=== PATIENT | male | born 1960 | race Caucasian/White ===

== ENCOUNTER 2023-07-02 12:16 | Emergency (ER) | payer SELFPAY ==
[~2023-07-02] VITALS: Ht 167.6 cm; Wt 100.0 kg
[2023-07-02 12:24] VITALS: O2SAT 96
[2023-07-02] MEDS ORDERED: atorvastatin (12:24)
[2023-07-02] MEDS ORDERED: METFROMIN (12:24)
[2023-07-02] MEDS ORDERED: metoprolol (12:24)
[2023-07-02] MEDS: KETOROLAC 60MG/2ML VIAL IM STA (12:33)
[2023-07-02 13:08] LABS: BASOPHILS % 0.4 % (0.0-2.0); EOSINOPHILS % 0.3 % (0.0-5.0); HEMATOCRIT. 39.7 % (42.0-52.0); HEMOGLOBIN. 13.2 g/dL (14.0-18.0); LYMPHOCYTES % 20.8 % (20.0-50.0); MEAN CORPUSCULAR HEMOGLOBIN 27.6 pg (28.0-32.0); MEAN CORPUSCULAR HGB CONC 33.2 g/dL (31.0-37.0); MEAN PLATELET VOLUME 8.2 fl (7.4-10.4); MONOCYTES % 9.1 % (2.0-8.0); NEUTROPHILS % 69.4 % (40.0-76.0); PLATELET 227 x1000/uL (130-400); RED BLOOD CELL COUNT 4.78 mill/uL (4.7-6.1); RED CELL DISTRIBUTION WIDTH 15.5 % (11.6-14.6)
[2023-07-02 13:33] LABS: CHLORIDE 101 mEq/L (98-107); POTASSIUM 3.8 mEq/L (3.5-5.1); SODIUM 134 mEq/L (136-145)
[2023-07-02 13:34] LABS: CALCIUM 9.2 mg/dL (8.7-10.4); CARBON DIOXIDE 25 mEq/L (21-32)
[2023-07-02 13:39] LABS: CREATININE 0.9 mg/dL (0.6-1.3); GLUCOSE 172 mg/dL (70-105); UREA NITROGEN BLOOD 21 mg/dL (9-23)
[2023-07-02 14:35] VITALS: BP 148/87; PULSE 86; RESP 17; TEMP 98.7
== END 2023-07-02 14:40 | disposition home or self-care (01) ==
LOC: ER 12:49
DX: I10 Essential (primary) hypertension (principal); E11.9 Type 2 diabetes mellitus without complications
CPT/HCPCS: 36415; 71045; 80048; 85025; 93005; 99285